=== PATIENT | male | born 1965 | race African-American/Black ===

== ENCOUNTER 2020-04-28 13:33 | Emergency (ER) | payer SELFPAY ==
[~2020-04-28] VITALS: Ht 172.7 cm; Wt 73.4 kg
[~2020-04-28 13:33] MED LIST: CYCL5TAB PO; HYDR-3135 PO; IBUP-1060 PO
[2020-04-28 13:56] VITALS: BP 162/84
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
[2020-04-28] MEDS ORDERED: IBUP-1007 PO (14:41)
== END 2020-04-28 15:29 | disposition home or self-care (01) ==
LOC: ER 13:33
DX: S62.101A Fracture of unspecified carpal bone, right wrist, initial encounter for closed fracture (principal); M79.641 Pain in right hand; R60.0 Localized edema; Z88.2 Allergy status to sulfonamides; W10.8XXA Fall (on) (from) other stairs and steps, initial encounter; Y93.89 Activity, other specified; Y92.89 Other specified places as the place of occurrence of the external cause; Y99.8 Other external cause status
CPT/HCPCS: 29125; 73130; 99283

== ENCOUNTER 2020-06-06 15:37 | Emergency (ER) | payer SELFPAY ==
[~2020-06-06] VITALS: Ht 172.7 cm; Wt 72.7 kg
[~2020-06-06 15:37] MED LIST changes: +IBUP-1007 PO
[2020-06-06] MEDS ORDERED: IPRATRPIUM/ALBUTEROL 0.5/2.5MG 3 ML NEBU. NEB ONE (16:00)
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
[2020-06-06 16:04] LABS: BASO % 1 % (0-3); EOS # 0.1 x10^3/uL (0.0-0.7); EOS % 2 % (0-3); HEMATOCRIT 48.5 % (39.0-53.0); HEMOGLOBIN 17.1 g/dL (13.0-17.5); LYMPH # 1.8 x10^3/uL (1.0-4.8); LYMPH % 35 % (24-48); MEAN CORPUSCULAR HEMOGLOBIN 32 pg (25-35); MEAN CORPUSCULAR HGB CONC 35 g/dL (31-37); MEAN CORPUSCULAR VOLUME 91 fL (79-100); MONO # 0.3 x10^3/uL (0.0-1.1); MONO % 6 % (0-9); NEUT # 2.8 x10^3/uL (1.8-7.7); NEUT % 56 % (31-73); PLATELET COUNT 176 x10^3/uL (140-400); RED BLOOD COUNT 5.37 x10^6/uL (4.30-5.70); RED CELL DISTRIBUTION WIDTH 14.1 % (11.5-14.5); WHITE BLOOD COUNT 5.1 x10^3/uL (4.0-11.0)
[2020-06-06 16:17] LABS: CALCIUM 9.7 mg/dL (8.5-10.1); CREATININE 1.3 mg/dL (0.7-1.3); GFR 69.6; POTASSIUM 3.3 mmol/L (3.5-5.1)
[2020-06-06 16:21] LABS: ALBUMIN 4.5 g/dL (3.4-5.0); DIRECT BILIRUBIN 0.2 mg/dL (0.0-0.2); TOTAL BILIRUBIN 0.9 mg/dL (0.2-1.0); TOTAL PROTEIN 8.6 g/dL (6.4-8.2)
[2020-06-06] MEDS ORDERED: POTA10TA12 PO (16:45)
--- NOTE | 2020-06-06 16:45 | RAD ---
CHEST AP ONLY History: Reason: SOA / Spl. Instructions: / History: Comparison: October 30, 2013 Findings: No consolidation or pleural effusion. Normal heart size. No pneumothorax. Impression: 1. No acute cardiopulmonary process. Electronically signed by: Bal Melchor DO (06/06/2020 4:42 PM) [id number]
[2020-06-06] MEDS ORDERED: ALBU2.5V8 INH (16:50)
[2020-06-06 17:00] VITALS: BP 147/76
--- NOTE | 2020-06-09 06:30 | EKG ---
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
== END 2020-06-06 17:01 | disposition home or self-care (01) ==
LOC: ER 15:37
DX: R06.02 Shortness of breath (principal); R42 Dizziness and giddiness; Z87.891 Personal history of nicotine dependence; Z88.6 Allergy status to analgesic agent; F10.20 Alcohol dependence, uncomplicated; Y90.9 Presence of alcohol in blood, level not specified
CPT/HCPCS: 36415; 71045; 80048; 80076; 83690; 84484; 85025; 85379; 93005; 94640; 96361; 96374; 96375; 99284-25; 99285-25

== ENCOUNTER 2020-07-11 17:02 | Emergency (ER) | payer SELFPAY ==
[~2020-07-11] VITALS: Ht 172.7 cm; Wt 75.0 kg
[~2020-07-11 17:02] MED LIST changes: +ALBU2.5V8 INH; +POTA10TA12 PO
[2020-07-11 17:15] VITALS: BP 152/79
[2020-07-11] MEDS ORDERED: CHLO15MO2 PO (19:00)
[2020-07-11] MEDS ORDERED: TRAM50TA PO (19:00)
--- NOTE | 2020-07-11 19:07 | PHYS DOC ---
Past Medical History Past Medical History: GERD, Other Additional Past Medical Histor: sciatica Past Surgical History: Other Additional Past Surgical Histo: right eye surgery Smoking Status: Former Smoker Alcohol Use: Heavy Drug Use: None General Adult EDM: Chief Complaint: DENTAL PROBLEM HPI: HPI: Patient is a 54 year old male who presents with right upper back tooth pain because of a broken tooth. He states he does not have a dentist. He rates his pain a 9 out of 10. Patient states the pain will radiate up into his ear. Patient denies fever, abdominal pain, nausea, vomiting, dizziness, syncope, body aches, chills. Review of Systems: Review of Systems: Constitutional: Denies fever or chills. [] Eyes: Denies change in visual acuity. [] HENT: Denies nasal congestion or sore throat. Right upper molar tooth broken. [] Respiratory: Denies cough or shortness of breath. [] Cardiovascular: Denies chest pain or edema. [] GI: Denies abdominal pain, nausea, vomiting, bloody stools or diarrhea. [] : Denies dysuria. [] Musculoskeletal: Denies back pain or joint pain. [] Integument: Denies rash. [] Neurologic: Denies headache, focal weakness or sensory changes. [] Endocrine: Denies polyuria or polydipsia. [] Lymphatic: Denies swollen glands. [] Psychiatric: Denies depression or anxiety. [] Heart Score: Risk Factors: Risk Factors: DM, Current or recent (<one month) smoker, HTN, HLP, family history of CAD, obesity. Risk Scores: Score 0 - 3: 2.5% MACE over next 6 weeks - Discharge Home Score 4 - 6: 20.3% MACE over next 6 weeks - Admit for Clinical Observation Score 7 - 10: 72.7% MACE over next 6 weeks - Early Invasive Strategies Allergies: Allergies: Allergies Coded Allergies Type Severity Reaction Last Updated Verified acetaminophen Allergy Severe swelling of throat 04/28/20 Yes Physical Exam: PE: Constitutional: Well developed, well nourished, no acute distress, non-toxic appearance. [] HENT: Normocephalic, atraumatic, bilateral external ears normal, oropharynx moist, no oral exudates, nose normal. Right upper tooth molar broken. [] Eyes: PERRLA, EOMI, conjunctiva normal, no discharge. [] Neck: Normal range of motion, no tenderness, supple, no stridor. [] Cardiovascular:Heart rate regular rhythm, no murmur [] Lungs & Thorax: Bilateral breath sounds clear to auscultation [] Abdomen: Bowel sounds normal, soft, no tenderness, no masses, no pulsatile masses. [] Skin: Warm, dry, no erythema, no rash. [] Back: No tenderness, no CVA tenderness. [] Extremities: No tenderness, no cyanosis, no clubbing, ROM intact, no edema. [] Neurologic: Alert and oriented X 3, normal motor function, normal sensory function, no focal deficits noted. [] Psychologic: Affect normal, judgement normal, mood normal. [] Current Patient Data: Vital Signs: Vital Signs Date Time Temp Pulse Resp B/P (MAP) Pulse Ox O2 Delivery O2 Flow Rate FiO2 07/11/20 17:15 99.2 72 13 152/79 (103) 96 Room Air 99.2 EKG: EKG: [] Radiology/Procedures: Radiology/Procedures: [] Course & Med Decision Making: Course & Med Decision Making Pertinent Labs and Imaging studies reviewed. (See chart for details) See HPI. Patient has a right upper back molar that is broken off. There is no gumline swelling or drainage. No facial swelling. Afebrile. Speaks in full clear sentences. Ambulatory with steady gait. Alert and oriented x2. [] Dragon Disclaimer: Dragon Disclaimer: This electronic medical record was generated, in whole or in part, using a voice recognition dictation system. Departure Departure Impression: Primary Impression: Pain, dental Disposition: 01 HOME, SELF-CARE Condition: STABLE Referrals: NO PCP (PCP) Patient Instructions: Dental Caries, Dental Pain Additional Instructions: Follow-up with a dentist as soon as possible. Take medication as prescribed and with food. This medication will make you sleepy do not drive or drink alcohol on top of this medication. Scripts Chlorhexidine Gluconate (PERIDEX) 15 Ml Mouthwash 15-30 ML PO TID for 8 Days, #473 ML 0 Refills Prov: MUSTAPHA THOMAS GIS ANALYST DEVELOPER 07/11/20 Tramadol Hcl (TRAMADOL HCL) 50 Mg Tablet 50 MG PO Q6HRS PRN for PAIN, #10 TAB Prov: MUSTAPHA THOMAS GIS ANALYST DEVELOPER 07/11/20 Justicifation of Admission Dx: Justifications for Admission: Justification of Admission Dx: N/A MUSTAPHA THOMAS GIS ANALYST DEVELOPER Jul 11, 2020 19:07
== END 2020-07-11 19:45 | disposition home or self-care (01) ==
LOC: ER 17:02
DX: K08.89 Other specified disorders of teeth and supporting structures (principal); K21.9 Gastro-esophageal reflux disease without esophagitis; F10.10 Alcohol abuse, uncomplicated; Z98.890 Other specified postprocedural states; Z87.891 Personal history of nicotine dependence; Z88.6 Allergy status to analgesic agent
CPT/HCPCS: 99283